=== PATIENT | male | born 1985 | race African-American/Black ===

== ENCOUNTER 2022-07-17 18:07 | Emergency (ER) | payer SELFPAY ==
--- NOTE | ~2022-07-17 | XR_ITS ---
EXAMINATION: XR chest 2V DATE: 07/17/2022 18:49 INDICATION: Chest pain TECHNIQUE: AP and lateral views of the chest are obtained. COMPARISON: None available FINDINGS: The lungs are free of acute opacities. No pleural effusion or pneumothorax. The cardiomedia stinal silhouette is normal. There is mild thoracic spondylosis. A BB projects in the posterior subcu taneous tissues of the right back. IMPRESSION: 1. No acute cardiopulmonary abnormality. Reviewed, dictated and finalized at location [facility]. [employer]IST[employer]
[2022-07-17 18:11] VITALS: BP 160/112; PULSE 84; RESP 18; TEMP 36.7; O2SAT 100
--- NOTE | 2022-07-17 18:18 | ECG_ITS ---
Measurements Intervals [place] Rate: 93 P: 45 NH: 181 QRS: -9 QRSD: 73 T: 5 QT: 308 QTc: 383 Interpretive Statements SINUS RHYTHM CONSIDER INFERIOR INFARCT, AGE INDETERMINATE ANTEROSEPTAL INFARCT, AGE INDETERMINATE BASELINE ARTIFACT- I, II, III, AVR, AVL, AVF, V1-V6 ABNORMAL ECG NO PREVIOUS ECG AVAILABLE FOR COMPARISON Electronically Signed On 07-17-2022 20:51:14 FURNITURE INSPECTOR by Bobby Hernández D.O.
[2022-07-17 19:00] VITALS: BP 154/108; PULSE 84; RESP 16; O2SAT 100
[2022-07-17 19:05] LABS: Basophils Percent Auto 0.2 % (0.2-1.2); Eosinophils Absolute Auto 0.7 K/mm3 (0-0.3); Hemoglobin 12.9 g/dL (14.0-18.0); Immature Granulocyte Absolute 0.04 K/mm3 (0.00-0.031); Immature Granulocyte Percent A 0.4 % (0-0.5); Lymphocytes Absolute Auto 2.77 K/mm3 (0.9-3.2); Lymphocytes Percent Auto 26.2 % (18.3-44.2); Mean Corpuscular HGB Conc 32.3 g/dl (32-36); Mean Corpuscular Hemoglobin 25.3 pg (26-34); Mean Corpuscular Volume 78.6 fl (80-100); Mean Platelet Volume 10.6 fl (7.4-10.4); Monocytes Absolute Auto 0.7 K/mm3 (0.1-0.6); Monocytes Percent Auto 6.7 % (2.6-8.5); Neutrophils Absolute Auto 6.3 K/mm3 (1.3-6.7); Neutrophils Percent Auto 59.5 % (45.5-73.1); Platelet Count Result 284 k/mm3 (150-375); Red Blood Count 5.09 M/mm3 (4.6-6.20); Red Cell Distribution Width 15.6 % (11.5-14.5); White Blood Count 10.6 K/mm3 (4.5-10.0)
[2022-07-17 19:15] LABS: Alanine Aminotransferase 21 U/L (6-50); Albumin Level 4.2 g/dL (3.5-5.1); Alkaline Phosphatase 100 U/L (38-126); Anion Gap 9 mmol/L (8-16); Aspartate Amino Transferase 25 U/L (17-59); Bilirubin,Total 0.5 mg/dL (0.2-1.3); Blood Urea Nitrogen 11 mg/dL (9-20); Calcium 9.2 mg/dL (8.4-10.2); Carbon Dioxide 28 mmol/L (22-30); Chloride 102 mmol/L (98-107); Estimated CRCL calculation 141 ml/min; Estimated Glomerular Filt Rate > 60; Glucose 96 mg/dL (65-110); Lipase 156 U/L (23-300); Potassium 4.4 mmol/L (3.4-5.0); Sodium 139 mmol/L (137-145)
[2022-07-17 19:16] LABS: INR 1.1; Prothrombin Time 13.3 Seconds (11.1-14.7)
[2022-07-17 19:17] LABS: Partial Thromboplastin Time 26.2 SECONDS (22.3-36.8)
[2022-07-17 19:26] LABS: Troponin I < 0.012 ng/mL (0.000-0.034)
[2022-07-17 20:00] VITALS: BP 156/106; PULSE 90; RESP 18; O2SAT 100
[2022-07-17] MEDS: KETOROLAC 15 MG/ML VIAL (*BKC) IV PUSH (20:16)
[2022-07-17] MEDS: LORazepam (*CRX) 0.5 MG TABLET PO (20:17)
--- NOTE | 2022-07-17 20:20 | ED.GENADULT ---
HPI - General Adult General Chief complaint: Chest Pain Stated complaint: chest pain/anxiety Time Seen by Provider: 07/17/22 19:28 History of Present Illness HPI narrative: Patient is a 36-year-old gentleman who presents emerged department with a chief complaint of chest discomfort. The patient states that he was at work started feeling anxious and had some tightness in his chest. The patient also reports he has pain in his right shoulder area the patient states the pain is worse with movement and reports that he has had this intermittently for some time that improves with ibuprofen. Related Data Allergies Allergy/AdvReac Type Severity Reaction Status Date / Time No Known Allergies Allergy Verified 07/17/22 20:15 Review of Systems Review of Systems: A 10 system review of systems was completed on the patient and is negative except for what is stated in the HPI. Nursing and ancillary documentation was reviewed. Exam Narrative: GENERAL: Well-appearing, well-nourished, and in no acute distress. HEAD: Normocephalic, atraumatic. EYES: PERRLA and EOMI. ENT: Nares clear, no rhinorrhea or epistaxis. Mucous membranes moist. NECK: Supple. CHEST: Clear to auscultation. No respiratory distress. HEART: Regular rate and rhythm. No murmur heard. Normal peripheral pulses. ABDOMEN: Soft, nontender, nondistended, normal active bowel sounds. EXTREMITIES: Normal range of motion. No edema. There is tenderness to palpation of the right shoulder/clavicle area SKIN: Warm, dry, no rash. NEURO: No focal deficits. Alert and oriented x3. PSYCH: Normal mood and affect. Course Course Emergency Course: EKG is sinus rhythm rate of [address] elevation or ST depression Vital Signs Vital signs: Vital Signs Temperature 36.7 C 07/17/22 18:11 Pulse Rate 84 07/17/22 18:11 Respiratory Rate 18 07/17/22 18:11 Blood Pressure 160/112 H 07/17/22 18:11 Pulse Oximetry 100 07/17/22 18:11 Oxygen Delivery Room Air 07/17/22 18:11 Temperature 36.7 C 07/17/22 18:11 Pulse Rate 84 07/17/22 18:11 Respiratory Rate 18 07/17/22 18:11 Blood Pressure 160/112 H 07/17/22 18:11 Pulse Oximetry 100 07/17/22 18:11 Oxygen Delivery Room Air 07/17/22 18:11 Medical Decision Making Vital Signs Vital Signs: Vital Signs Temperature 36.7 C 07/17/22 18:11 Pulse Rate 84 07/17/22 18:11 Respiratory Rate 18 07/17/22 18:11 Blood Pressure 160/112 H 07/17/22 18:11 Pulse Oximetry 100 07/17/22 18:11 Oxygen Delivery Room Air 07/17/22 18:11 Temperature 36.7 C 07/17/22 18:11 Pulse Rate 84 07/17/22 18:11 Respiratory Rate 18 07/17/22 18:11 Blood Pressure 160/112 H 07/17/22 18:11 Pulse Oximetry 100 07/17/22 18:11 Oxygen Delivery Room Air 07/17/22 18:11 Lab Data Result diagrams: 07/17/22 19:00 07/17/22 19:00 Labs: Lab Results 07/17/22 07/17/22 07/17/22 Range/Units 19:00 19:00 19:00 WBC 10.6 H (4.5-10.0) K/mm3 RBC 5.09 (4.6-6.20) M/mm3 Hgb 12.9 L (14.0-18.0) g/dL Hct 40.0 L (42.0-52.0) % MCV 78.6 L (80-100) fl MCH 25.3 L (26-34) pg MCHC 32.3 (32-36) g/dl RDW 15.6 H (11.5-14.5) % Plt Count 284 (150-375) k/mm3 MPV 10.6 H (7.4-10.4) fl Immature Gran % (Auto) 0.4 (0-0.5) % Neut % (Auto) 59.5 (45.5-73.1) % Lymph % (Auto) 26.2 (18.3-44.2) % [place] % (Auto) 6.7 (2.6-8.5) % Eos % (Auto) 7.0 H (0-4.4) % Baso % (Auto) 0.2 (0.2-1.2) % Lymph # (Auto) 2.77 (0.9-3.2) K/mm3 [place] # (Auto) 0.7 H (0.1-0.6) K/mm3 Eos # (Auto) 0.7 H (0-0.3) K/mm3 Baso # (Auto) 0.0 (0.0-0.1) K/mm3 Abs Immat Gran (auto) 0.04 H (0.00-0.031) K/mm3 Absolute Neuts (auto) 6.3 (1.3-6.7) K/mm3 Absolute Nucleated RBC 0.0 (0.0-0.012) K/mm3 Nucleated RBC % 0.0 (0.0-0.2) % PT 13.3 (11.1-14.7) Seconds INR 1.1 APTT 26.2 (22.3-36.8) SECONDS Sodium 139 (137-145) mmol/L P
[2022-07-17 21:00] VITALS: BP 156/108; PULSE 93; RESP 18; O2SAT 100
[2022-07-17 21:42] LABS: Troponin I < 0.012 ng/mL (0.000-0.034)
[2022-07-17 22:00] VITALS: BP 162/110; PULSE 90; RESP 16; O2SAT 100
[2022-07-17 22:23] VITALS: TEMP 36.8
== END 2022-07-17 22:24 | disposition home or self-care (01) ==
PROVIDERS: Emergency Medicine; Emergency Provider Emergency Medicine
DX: R07.9 Chest pain, unspecified (principal)
CPT/HCPCS: 36415; 71046; 80053; 83690; 84484; 85025; 85610; 85730; 93005; 96374; 99284; A9270; J1885